=== PATIENT | female | born 1935 | race African-American/Black ===

== ENCOUNTER 2017-04-14 21:19 | Inpatient (IN) | payer OTHER, BC ==
[~2017-04-14] VITALS: Ht 160 cm; Wt 50.5 kg
[2017-04-14 23:17] LABS: EOSINOPHIL (%) 0.3 % (0-5); HEMATOCRIT 31.4 % (36.0-46.0); IMMATURE GRANULOCYTE (%) 0.3 % (0.0-0.7); INSTRUMENT ABS NEUTROPHIL CT 6.7 K/uL; LYMPHOCYTE COUNT 0.7 K/uL (1.0-2.8); MCH 30.5 PG (29.0-34.0); MCHC 32.8 G/DL (30.0-36.0); MCV 92.9 FL (83-99); MEAN PLAT.VOLUME 9.8 uM^3 (9.5-12.4); MONOCYTE (%) 5.7 % (3-12); MONOCYTE COUNT 0.5 K/uL (0-0.8); NEUTROPHIL (%) 84.7 % (45-76); NEUTROPHIL COUNT 6.7 K/uL (1.8-6.4); PLATELET COUNT 260 K/uL (156-360); RBC DIS.WIDTH-CV 13.3 % (11.8-14.6); RBC DIS.WIDTH-SD 45.6 % (39-53); RED BLOOD COUNT 3.38 M/uL (3.80-5.20); WHITE BLOOD COUNT 7.9 K/uL (4.1-10.2)
[2017-04-14] MEDS ORDERED: REMERON15 M2 PO (23:22)
[2017-04-14] MEDS ORDERED: AMARYL1 MG PO (23:23)
[2017-04-14] MEDS ORDERED: SINEMET 25-1001 EACH PO (23:23)
[2017-04-14] MEDS ORDERED: B-121000 MC2 PO (23:24)
[2017-04-14] MEDS ORDERED: GLUCOPHAGE XR,500 MG PO (23:24)
[2017-04-14] MEDS ORDERED: ADVIL200 MG PO (23:24)
[2017-04-14] MEDS ORDERED: ALLEGRA60 MG PO (23:25)
[2017-04-14 23:26] LABS: CHLORIDE 103 mEq/L (99-109); POTASSIUM 4.8 mEq/L (3.7-5.4); SODIUM 138 mEq/L (136-147)
[2017-04-14 23:27] LABS: GLUCOSE 291 mg/dL (70-99); PROTHROMBIN TIME 10.8 SEC (10.2-12.9)
[2017-04-14 23:29] LABS: ANION GAP 15 MEQ/L (2-14); PTT 23.8 SEC (25-37)
[2017-04-14 23:31] LABS: GFR ESTIMATE (CALCULATED) > 59 mL/min/
[2017-04-14 23:32] LABS: UREA NITROGEN (BUN) 27 mg/dL (9-23)
[2017-04-15 01:28] LABS: TOTAL BILIRUBIN 0.2 mg/dL (0.0-1.0)
[2017-04-15 01:29] LABS: ALKALINE PHOSPHATASE 65 IU/L (3-129)
[2017-04-15 01:32] LABS: DIRECT BILIRUBIN 0.1 mg/dL (0.0-0.3)
[2017-04-15 01:38] LABS: TROP-I INTERPRETATION NEGATIVE; TROPONIN-I < 0.01 ng/mL (0.0-0.30)
[2017-04-15 06:18] LABS: HEMATOCRIT 29.8 % (36.0-46.0); MCH 30.5 PG (29.0-34.0); MCHC 33.2 G/DL (30.0-36.0); MCV 91.7 FL (83-99); MEAN PLAT.VOLUME 9.3 uM^3 (9.5-12.4); PLATELET COUNT 279 K/uL (156-360); RBC DIS.WIDTH-CV 13.3 % (11.8-14.6); RBC DIS.WIDTH-SD 45.3 % (39-53); RED BLOOD COUNT 3.25 M/uL (3.80-5.20); WHITE BLOOD COUNT 8.7 K/uL (4.1-10.2)
[2017-04-15 06:59] LABS: CHLORIDE 106 mEq/L (99-109); POTASSIUM 4.4 mEq/L (3.7-5.4); SODIUM 137 mEq/L (136-147)
[2017-04-15 07:01] LABS: GLUCOSE 226 mg/dL (70-99)
[2017-04-15 07:03] LABS: ANION GAP 10 MEQ/L (2-14)
[2017-04-15 07:05] LABS: GFR ESTIMATE (CALCULATED) > 59 mL/min/
[2017-04-15 07:06] LABS: UREA NITROGEN (BUN) 22 mg/dL (9-23)
[2017-04-15 07:52] LABS: POINT-OF-CARE METER ID UU13113747
[2017-04-15 11:44] LABS: ADD MIUA? NO; BILIRUBIN NEGATIVE; BLOOD NEGATIVE; COLOR STRAW ((YELLOW)); GLUCOSE (STRIP) 50; KETONES NEGATIVE; LEUKOCYTES NEGATIVE; NITRITE NEGATIVE; PROTEIN (STRIP) NEGATIVE; SPECIFIC GRAVITY 1.011 (1.000-1.030); UCUL ADDED? NO; UROBILINOGEN 0.2 MG/DL (0.2-1.0)
[2017-04-15 12:19] LABS: POINT-OF-CARE METER ID UU13113747
[2017-04-15 15:18] VITALS: BP 165/83
[2017-04-15 17:08] LABS: POINT-OF-CARE METER ID UU14117124
[2017-04-15 19:50] LABS: POINT-OF-CARE METER ID UU13113675; POINT-OF-CARE USER ID 515036437
[2017-04-15 21:54] LABS: POINT-OF-CARE METER ID UU14117124
[2017-04-15 22:42] LABS: HEMATOCRIT 31.9 % (36.0-46.0); MCH 30.7 PG (29.0-34.0); MCHC 32.9 G/DL (30.0-36.0); MCV 93.3 FL (83-99); MEAN PLAT.VOLUME 10.3 uM^3 (9.5-12.4); PLATELET COUNT 287 K/uL (156-360); RBC DIS.WIDTH-CV 13.4 % (11.8-14.6); RBC DIS.WIDTH-SD 46.4 % (39-53); RED BLOOD COUNT 3.42 M/uL (3.80-5.20); WHITE BLOOD COUNT 13.3 K/uL (4.1-10.2)
[2017-04-15 23:37] VITALS: BP 154/83
[2017-04-16 04:00] VITALS: BP 165/84
[2017-04-16 06:53] LABS: ANION GAP 9 MEQ/L (2-14); CHLORIDE 102 MEQ/L (99-109); GFR ESTIMATE (CALCULATED) > 59 mL/min/; GLUCOSE 272 mg/dL (70-99); MAGNESIUM 1.5 mg/dl (1.3-2.7); POTASSIUM 3.8 MEQ/L (3.7-5.4); SAMPLE HEMOLYSIS CHECK 0; SAMPLE ICTERIC CHECK 0; SAMPLE LIPEMIA CHECK 0; SODIUM 135 MEQ/L (136-147); UREA NITROGEN (BUN) 14 mg/dL (9-23)
[2017-04-16 07:03] LABS: POINT-OF-CARE METER ID UU14149397
[2017-04-16 07:06] LABS: EOSINOPHIL (%) 0.1 % (0-5); HEMATOCRIT 30.6 % (36.0-46.0); IMMATURE GRANULOCYTE (%) 0.4 % (0.0-0.7); INSTRUMENT ABS NEUTROPHIL CT 5.4 K/uL; LYMPHOCYTE COUNT 0.7 K/uL (1.0-2.8); MCH 29.9 PG (29.0-34.0); MCHC 32.7 G/DL (30.0-36.0); MCV 91.6 FL (83-99); MEAN PLAT.VOLUME 10.2 uM^3 (9.5-12.4); MONOCYTE (%) 10.6 % (3-12); MONOCYTE COUNT 0.7 K/uL (0-0.8); NEUTROPHIL (%) 78.9 % (45-76); NEUTROPHIL COUNT 5.4 K/uL (1.8-6.4); PLATELET COUNT 281 K/uL (156-360); RBC DIS.WIDTH-CV 13.2 % (11.8-14.6); RED BLOOD COUNT 3.34 M/uL (3.80-5.20); WHITE BLOOD COUNT 6.9 K/uL (4.1-10.2)
[2017-04-16 07:51] VITALS: BP 146/84
[2017-04-16 11:04] VITALS: BP 127/70
[2017-04-16 11:43] LABS: POINT-OF-CARE METER ID UU14149397
[2017-04-16 15:41] VITALS: BP 129/75
[2017-04-16 16:45] LABS: POINT-OF-CARE METER ID UU14208753
[2017-04-16 19:51] VITALS: BP 111/66
[2017-04-16 21:30] LABS: POINT-OF-CARE METER ID UU14188577
[2017-04-16 23:50] VITALS: BP 161/88
[2017-04-17 04:25] VITALS: BP 153/83
[2017-04-17 06:05] LABS: POINT-OF-CARE METER ID UU14188577
[2017-04-17 06:57] LABS: EOSINOPHIL (%) 0 % (0-5); HEMATOCRIT 27.7 % (36.0-46.0); IMMATURE GRANULOCYTE (%) 0.4 % (0.0-0.7); INSTRUMENT ABS NEUTROPHIL CT 7.1 K/uL; LYMPHOCYTE COUNT 1.2 K/uL (1.0-2.8); MCH 30.6 PG (29.0-34.0); MCHC 33.9 G/DL (30.0-36.0); MCV 90.2 FL (83-99); MEAN PLAT.VOLUME 10.3 uM^3 (9.5-12.4); MONOCYTE (%) 14.7 % (3-12); MONOCYTE COUNT 1.4 K/uL (0-0.8); NEUTROPHIL (%) 72.7 % (45-76); NEUTROPHIL COUNT 7.1 K/uL (1.8-6.4); PLATELET COUNT 263 K/uL (156-360); RBC DIS.WIDTH-CV 13.3 % (11.8-14.6); RBC DIS.WIDTH-SD 43.8 % (39-53); RED BLOOD COUNT 3.07 M/uL (3.80-5.20); WHITE BLOOD COUNT 9.7 K/uL (4.1-10.2)
[2017-04-17 07:32] LABS: ANION GAP 10 MEQ/L (2-14); CHLORIDE 98 MEQ/L (99-109); GFR ESTIMATE (CALCULATED) > 59 mL/min/; GLUCOSE 242 mg/dL (70-99); MAGNESIUM 1.7 mg/dl (1.3-2.7); POTASSIUM 3.8 MEQ/L (3.7-5.4); SAMPLE HEMOLYSIS CHECK 0; SAMPLE ICTERIC CHECK 0; SAMPLE LIPEMIA CHECK 0; SODIUM 133 MEQ/L (136-147); UREA NITROGEN (BUN) 15 mg/dL (9-23)
[2017-04-17 08:16] VITALS: BP 127/65
[2017-04-17 09:26] LABS: POINT-OF-CARE METER ID UU14188577
[2017-04-17 11:29] LABS: BASE EXCESS 5.9 mEq/L (-3 to +3); BICARBONATE 29.7 mEq/L (22-26); CARBOXY HGB 1.9 % (0-5); COMMENTS - BLOOD GASES A+C+; DEVICE RA; METHEMOGLOBIN 1.5 % (0-1.5); PCO2 39 mm Hg (35-45); PO2 69 mm Hg (80-100); SITE RR; TOTAL RESP RATE 15 resp/min; pH 7.49 (7.35-7.45)
[2017-04-17 11:44] VITALS: BP 130/77
[2017-04-17 11:53] LABS: POINT-OF-CARE METER ID UU14188577
[2017-04-17 16:19] VITALS: BP 146/83
[2017-04-17 16:46] LABS: ADD MIUA? NO; BILIRUBIN NEGATIVE; BLOOD NEGATIVE; COLOR YELLOW ((YELLOW)); GLUCOSE (STRIP) >=500; KETONES 20; LEUKOCYTES NEGATIVE; NITRITE NEGATIVE; PROTEIN (STRIP) 30; SPECIFIC GRAVITY 1.017 (1.000-1.030); UCUL ADDED? NO; UROBILINOGEN 0.2 MG/DL (0.2-1.0)
[2017-04-17 17:00] LABS: POINT-OF-CARE METER ID UU14188577
[2017-04-17 19:25] VITALS: BP 139/78
[2017-04-17 21:32] LABS: POINT-OF-CARE METER ID UU14117124
[2017-04-18 00:15] VITALS: BP 133/69
[2017-04-18 04:50] VITALS: BP 143/79
[2017-04-18 06:18] LABS: POINT-OF-CARE METER ID UU14117124
[2017-04-18 07:10] LABS: EOSINOPHIL (%) 0.1 % (0-5); HEMATOCRIT 26.9 % (36.0-46.0); IMMATURE GRANULOCYTE (%) 0.5 % (0.0-0.7); IMMATURE GRANULOCYTE COUNT 0.1 K/uL; INSTRUMENT ABS NEUTROPHIL CT 7.7 K/uL; LYMPHOCYTE COUNT 1.4 K/uL (1.0-2.8); MCH 30.4 PG (29.0-34.0); MCHC 33.1 G/DL (30.0-36.0); MCV 91.8 FL (83-99); MEAN PLAT.VOLUME 9.7 uM^3 (9.5-12.4); MONOCYTE (%) 9.8 % (3-12); NEUTROPHIL COUNT 7.7 K/uL (1.8-6.4); PLATELET COUNT 250 K/uL (156-360); RBC DIS.WIDTH-CV 13.2 % (11.8-14.6); RBC DIS.WIDTH-SD 44.1 % (39-53); RED BLOOD COUNT 2.93 M/uL (3.80-5.20); WHITE BLOOD COUNT 10.2 K/uL (4.1-10.2)
[2017-04-18 07:45] VITALS: BP 149/73
[2017-04-18 09:00] LABS: ANION GAP 9 MEQ/L (2-14); CHLORIDE 102 MEQ/L (99-109); GFR ESTIMATE (CALCULATED) > 59 mL/min/; GLOBULINS 2.6 G/DL (2.3-3.5); GLUCOSE 193 mg/dL (70-99); POTASSIUM 3.8 MEQ/L (3.7-5.4); SAMPLE HEMOLYSIS CHECK 0; SAMPLE ICTERIC CHECK 0; SAMPLE LIPEMIA CHECK 0; SODIUM 135 MEQ/L (136-147); UREA NITROGEN (BUN) 15 mg/dL (9-23)
[2017-04-18 11:04] VITALS: BP 152/77
[2017-04-18 11:30] LABS: POINT-OF-CARE METER ID UU14117124
[2017-04-18 15:49] VITALS: BP 138/74
[2017-04-18 16:52] LABS: POINT-OF-CARE METER ID UU14208753
[2017-04-18 19:56] VITALS: BP 116/72
[2017-04-18 21:21] LABS: POINT-OF-CARE METER ID UU14117124
[2017-04-19 04:08] VITALS: BP 137/71
[2017-04-19 06:39] LABS: POINT-OF-CARE METER ID UU14117124
[2017-04-19 07:07] LABS: EOSINOPHIL (%) 0.4 % (0-5); HEMATOCRIT 25.4 % (36.0-46.0); IMMATURE GRANULOCYTE (%) 0.4 % (0.0-0.7); INSTRUMENT ABS NEUTROPHIL CT 5.8 K/uL; LYMPHOCYTE COUNT 1.3 K/uL (1.0-2.8); MCH 31.1 PG (29.0-34.0); MCHC 33.5 G/DL (30.0-36.0); MEAN PLAT.VOLUME 9.8 uM^3 (9.5-12.4); MONOCYTE COUNT 0.8 K/uL (0-0.8); NEUTROPHIL (%) 72.2 % (45-76); NEUTROPHIL COUNT 5.8 K/uL (1.8-6.4); PLATELET COUNT 279 K/uL (156-360); RBC DIS.WIDTH-CV 13.2 % (11.8-14.6); RED BLOOD COUNT 2.73 M/uL (3.80-5.20)
[2017-04-19 07:34] LABS: ANION GAP 8 MEQ/L (2-14); CHLORIDE 105 MEQ/L (99-109); GFR ESTIMATE (CALCULATED) > 59 mL/min/; GLUCOSE 193 mg/dL (70-99); POTASSIUM 3.6 MEQ/L (3.7-5.4); SAMPLE HEMOLYSIS CHECK 0; SAMPLE ICTERIC CHECK 0; SAMPLE LIPEMIA CHECK 0; SODIUM 139 MEQ/L (136-147); UREA NITROGEN (BUN) 16 mg/dL (9-23)
[2017-04-19 08:41] VITALS: BP 118/78
[2017-04-19 11:40] VITALS: BP 132/63
[2017-04-19 12:06] LABS: POINT-OF-CARE METER ID UU14117124
[2017-04-19 16:55] LABS: POINT-OF-CARE METER ID UU14117124
[2017-04-19 17:11] VITALS: BP 139/72
[2017-04-19 19:47] VITALS: BP 151/74
[2017-04-19 21:21] LABS: POINT-OF-CARE METER ID UU14117124
[2017-04-19 23:29] VITALS: BP 136/81
[2017-04-20 03:44] VITALS: BP 173/82
[2017-04-20 06:30] LABS: POINT-OF-CARE METER ID UU14117124
[2017-04-20 08:24] VITALS: BP 140/73
[2017-04-20] MEDS ORDERED: HEPARIN SO5000 UNIT3 SC (08:48)
[2017-04-20] MEDS ORDERED: NOVOLOG PE100 UNITS/ SC (08:50)
[2017-04-20] MEDS ORDERED: SENNA PLUS TAB1 EACH PO (08:51)
[2017-04-20] MEDS ORDERED: ACETAMINOPHEN325 M1 PO (08:52)
[2017-04-22 13:22] LABS: ALBUMIN 2.58 G/DL (3.6-4.9); ALBUMIN PERCENT 47.8 % (49.3-67.1); ALPHA-1 GLOBULIN 0.45 G/DL (0.15-0.40); ALPHA-1 PERCENT 8.4 % (2.1-5.5); ALPHA-2 GLOBULIN 0.92 G/DL (0.45-0.85); ALPHA-2 PERCENT 17.1 % (6.2-11.6); BETA PERCENT 14.3 % (8.9-15.8); GAMMA PERCENT 12.4 % (8.6-18.6)
== END 2017-04-20 11:48 | DRG 469 ==
LOC: EME 21:19 → EDOF 04-15 00:22 → 3EAST 04-15 00:22 → ENRESERV 04-15 00:25 → CANRESERV 04-15 13:01 → ENRESERV 04-15 13:01 → 3EAST 04-15 15:05
PROVIDERS: Emergency Medicine; Hospitalist; Internal Medicine; Internal Medicine Hematology & Oncology; Orthopaedic Surgery; Physician Assistant
PROC: 0SRS0JA Replacement of Left Hip Joint, Femoral Surface with Synthetic Substitute, Uncemented, Open Approach (ICD-10-PCS; principal; 2017-04-15)
DX: S72.012A Unspecified intracapsular fracture of left femur, initial encounter for closed fracture (principal); S60.212A Contusion of left wrist, initial encounter; W01.0XXA Fall on same level from slipping, tripping and stumbling without subsequent striking against object, initial encounter; Y92.003 Bedroom of unspecified non-institutional (private) residence as the place of occurrence of the external cause; D62 Acute posthemorrhagic anemia; G92 Toxic encephalopathy; T40.2X5A Adverse effect of other opioids, initial encounter; E87.3 Alkalosis; E11.65 Type 2 diabetes mellitus with hyperglycemia; I27.20 Pulmonary hypertension, unspecified; I10 Essential (primary) hypertension; F03.90 Unspecified dementia, unspecified severity, without behavioral disturbance, psychotic disturbance, mood disturbance, and anxiety; G20 Parkinson's disease; E11.9 Type 2 diabetes mellitus without complications; G89.29 Other chronic pain; M25.512 Pain in left shoulder; R29.6 Repeated falls; R93.7 Abnormal findings on diagnostic imaging of other parts of musculoskeletal system; Z85.3 Personal history of malignant neoplasm of breast; Z88.6 Allergy status to analgesic agent
CPT/HCPCS: 36600; 70450; 71010; 71275; 72220; 73110; 73501; 73502; 80048; 80076; 81003; 82803; 82948; 83735; 83880; 83883 90; 84165; 84443; 84484; 85014; 85018; 85025; 85027; 85610; 85730; 86334; 86850; 86900; 86901; 87040; 92526 GN; 92610 GN; 93005; 93306; 93970; 97530 GP; 99281; 99285; J0690; J1644; J1650; J1815; J2270; J2405; J3010; J7030